=== PATIENT | female | born 1950 | race African-American/Black ===

== ENCOUNTER → 2017-10-23 | Outpatient (CLI) | payer MEDICARE, OTHER, MEDICAID ==
[2017-10-23 11:18] LABS: HEMATOCRIT 39.3 % (37.0-47.0); HEMOGLOBIN 12.7 g/dL (12.5-16.0); MEAN CELL VOLUME 98 fl (78-100); MEAN CORPUSCULAR HEMOGLOBIN 32 pg (27-31); MEAN CORPUSCULAR HGB CONC 32 g/dL (33-37); MEAN PLATELET VOLUME 9.1 fl (7.4-10.4); PLATELET COUNT 310 K/mm3 (130-400); RED BLOOD COUNT 4.01 M/mm3 (4.10-5.30); RED CELL DISTRIBUTION WIDTH 13.5 % (11.5-14.5); WHITE BLOOD COUNT 6.7 K/mm3 (4.8-10.8)
[2017-10-23 11:38] LABS: ALBUMIN 3.9 g/dL (3.5-5.0); CALCIUM 9.7 mg/dL (8.4-10.2); POTASSIUM 4.5 mmol/L (3.6-5.0); TOTAL BILIRUBIN 0.4 mg/dL (0.2-1.3); TOTAL PROTEIN 7.9 g/dL (6.3-8.2)
[2017-10-23 13:49] LABS: BAND 1 % (0-10); NEUTROPHILS 64 % (42-75)
[2017-10-23 13:50] LABS: LYMPHOCYTE 22 % (20-51); MONOCYTE 12 % (3-10)
== END ==
LOC: LAB 10:19
PROVIDERS: Internal Medicine
DX: G40.909 Epilepsy, unspecified, not intractable, without status epilepticus (principal); M85.89 Other specified disorders of bone density and structure, multiple sites; E78.5 Hyperlipidemia, unspecified; A41.51 Sepsis due to Escherichia coli [E. coli]; E03.4 Atrophy of thyroid (acquired)

== ENCOUNTER → 2018-04-13 | Outpatient (CLI) | payer MEDICARE, OTHER, MEDICAID ==
[2018-04-13 14:41] LABS: PH-URINE 5.5 (5.0 - 8.0); URINE APPEARANCE CLOUDY; URINE BILIRUBIN NEGATIVE (NEGATIVE); URINE BLOOD 50 ery/uL (NEGATIVE); URINE COLOR YELLOW; URINE GLUCOSE NEGATIVE (NEGATIVE); URINE KETONE NEGATIVE (NEGATIVE); URINE NITRATE POSITIVE (NEGATIVE); URINE PROTEIN(semi-quant) 1+ mg/dL (NEGATIVE); URINE UROBILINOGEN NORMAL (NORMAL)
[2018-04-13 14:42] LABS: URINE LEUKOCYTE ESTERASE 2+ (NEGATIVE); URINE WBC 16-30 /hpf (0-3)
== END ==
LOC: LAB 14:09
PROVIDERS: Internal Medicine
DX: N39.0 Urinary tract infection, site not specified (principal); R32 Unspecified urinary incontinence

== ENCOUNTER → 2019-09-03 | Outpatient (CLI) | payer MEDICARE, OTHER, MEDICAID ==
[2019-09-03 09:37] LABS: HEMOGLOBIN 12.6 g/dL (12.5-16.0); MEAN CELL VOLUME 97 fl (78-100); MEAN CORPUSCULAR HEMOGLOBIN 31 pg (27-31); MEAN CORPUSCULAR HGB CONC 32 g/dL (33-37); MEAN PLATELET VOLUME 9.1 fl (7.4-10.4); PLATELET COUNT 196 K/mm3 (130-400); RED BLOOD COUNT 4.03 M/mm3 (4.10-5.30); WHITE BLOOD COUNT 6.3 K/mm3 (4.8-10.8)
[2019-09-03 10:00] LABS: LYMPHOCYTE 26 % (20-51); MONOCYTE 13 % (3-10); NEUTROPHILS 61 % (42-75)
[2019-09-04 14:40] LABS: ALBUMIN 3.9 g/dL (3.4-4.8); POTASSIUM 4.3 mmol/L (3.5-5.1)
[2019-09-04 14:41] LABS: CALCIUM 9.5 mg/dL (8.3-10.5)
[2019-09-04 14:44] LABS: TOTAL BILIRUBIN 0.3 mg/dL (0.2-1.2)
== END ==
LOC: LAB 09:19
PROVIDERS: Internal Medicine
DX: G40.309 Generalized idiopathic epilepsy and epileptic syndromes, not intractable, without status epilepticus (principal); M85.89 Other specified disorders of bone density and structure, multiple sites; E78.2 Mixed hyperlipidemia; E03.9 Hypothyroidism, unspecified

== ENCOUNTER → 2020-03-03 | Outpatient (CLI) | payer MEDICARE, OTHER, MEDICAID ==
[2020-03-03 11:10] LABS: EOS % 0.4 % (1.0-5.0); HEMATOCRIT 41.2 % (37.0-47.0); HEMOGLOBIN 13.1 g/dL (12.5-16.0); LYMPH# 1.4 (1.50-4.00); MEAN CELL VOLUME 96 fl (78-100); MEAN CORPUSCULAR HEMOGLOBIN 30 pg (27-31); MEAN CORPUSCULAR HGB CONC 32 g/dL (33-37); MONO # 0.7 (0.20-0.80); NEU # 3.7 (1.40-6.50); PLATELET COUNT 237 K/mm3 (130-400); RED BLOOD COUNT 4.31 M/mm3 (4.10-5.30); RED CELL DISTRIBUTION WIDTH 13.4 % (11.5-14.5); WHITE BLOOD COUNT 5.7 K/mm3 (4.8-10.8)
[2020-03-03 11:13] LABS: POTASSIUM 4.1 mmol/L (3.5-5.1)
[2020-03-03 11:14] LABS: CALCIUM 9.7 mg/dL (8.3-10.5)
[2020-03-03 11:16] LABS: TOTAL PROTEIN 7.3 g/dL (6.2-8.1)
[2020-03-03 11:17] LABS: TOTAL BILIRUBIN 0.4 mg/dL (0.2-1.2)
[2020-03-03 11:22] LABS: MAGNESIUM 1.67 mg/dL (1.60-2.60)
[2020-03-03 12:21] LABS: ERYTHROCYTE SEDIMENTATION RATE 25 mm/hr (0-30)
== END ==
LOC: LAB 10:29
PROVIDERS: Internal Medicine
DX: G40.909 Epilepsy, unspecified, not intractable, without status epilepticus (principal); K90.9 Intestinal malabsorption, unspecified; M81.0 Age-related osteoporosis without current pathological fracture

== ENCOUNTER → 2020-09-29 | Outpatient (CLI) | payer MEDICARE, OTHER, MEDICAID ==
[2020-09-29 11:13] LABS: BASO # 0.03 (0.02-0.10); EOS # 0.03 (0.04-0.40); EOS % 0.6 % (1.0-5.0); HEMATOCRIT 38.6 % (37.0-47.0); HEMOGLOBIN 12.7 g/dL (12.5-16.0); LYMPH# 1.62 (1.50-4.00); MEAN CELL VOLUME 95 fl (78-100); MEAN CORPUSCULAR HEMOGLOBIN 31 pg (27-31); MEAN CORPUSCULAR HGB CONC 33 g/dL (33-37); MEAN PLATELET VOLUME 8.9 fl (7.4-10.4); MONO # 0.81 (0.20-0.80); NEU # 2.61 (1.40-6.50); PLATELET COUNT 176 K/mm3 (130-400); RED BLOOD COUNT 4.07 M/mm3 (4.10-5.30); RED CELL DISTRIBUTION WIDTH 12.9 % (11.5-14.5); WHITE BLOOD COUNT 5.1 K/mm3 (4.8-10.8)
[2020-09-29 11:29] LABS: ALBUMIN 3.7 g/dL (3.4-4.8)
[2020-09-29 11:30] LABS: POTASSIUM 4.1 mmol/L (3.5-5.1)
[2020-09-29 11:31] LABS: CALCIUM 9.2 mg/dL (8.3-10.5)
[2020-09-29 11:32] LABS: TOTAL PROTEIN 6.6 g/dL (6.2-8.1)
[2020-09-29 11:34] LABS: TOTAL BILIRUBIN 0.3 mg/dL (0.2-1.2)
== END ==
LOC: LAB 10:56
PROVIDERS: Internal Medicine
DX: G40.909 Epilepsy, unspecified, not intractable, without status epilepticus (principal); M81.0 Age-related osteoporosis without current pathological fracture; N39.0 Urinary tract infection, site not specified

== ENCOUNTER → 2020-11-19 | Outpatient (CLI) | payer MEDICARE, OTHER, MEDICAID ==
[2020-11-19 15:08] LABS: BASO # 0.01 (0.02-0.10); EOS # 0.06 (0.04-0.40); EOS % 1.1 % (1.0-5.0); HEMOGLOBIN 12.5 g/dL (12.5-16.0); LYMPH# 1.86 (1.50-4.00); MEAN CELL VOLUME 99 fl (78-100); MEAN CORPUSCULAR HEMOGLOBIN 32 pg (27-31); MEAN CORPUSCULAR HGB CONC 32 g/dL (33-37); MEAN PLATELET VOLUME 8.6 fl (7.4-10.4); MONO # 0.69 (0.20-0.80); NEU # 2.96 (1.40-6.50); PLATELET COUNT 201 K/mm3 (130-400); RED BLOOD COUNT 3.93 M/mm3 (4.10-5.30); WHITE BLOOD COUNT 5.6 K/mm3 (4.8-10.8)
[2020-11-19 15:16] LABS: ALBUMIN 3.8 g/dL (3.4-4.8)
[2020-11-19 15:17] LABS: POTASSIUM 4.1 mmol/L (3.5-5.1)
[2020-11-19 15:18] LABS: CALCIUM 9.3 mg/dL (8.3-10.5)
[2020-11-19 15:19] LABS: TOTAL PROTEIN 6.8 g/dL (6.2-8.1)
[2020-11-19 15:21] LABS: TOTAL BILIRUBIN 0.3 mg/dL (0.2-1.2)
== END ==
LOC: LAB 14:49
PROVIDERS: Internal Medicine
DX: G40.909 Epilepsy, unspecified, not intractable, without status epilepticus (principal)

== ENCOUNTER → 2021-09-16 | Outpatient (CLI) | payer MEDICARE, OTHER, MEDICAID ==
[2021-09-16 17:32] LABS: BASO # 0.01 K/mm3 (0.02-0.10); EOS # 0.03 K/mm3 (0.04-0.40); EOS % 0.5 % (1.0-5.0); HEMATOCRIT 40.4 % (37.0-47.0); HEMOGLOBIN 13.3 g/dL (12.5-16.0); LYMPH# 2.08 K/mm3 (1.50-4.00); MEAN CELL VOLUME 97 fl (78-100); MEAN CORPUSCULAR HEMOGLOBIN 32 pg (27-31); MEAN CORPUSCULAR HGB CONC 33 g/dL (33-37); MEAN PLATELET VOLUME 8.7 fl (7.4-10.4); MONO # 0.74 K/mm3 (0.20-0.80); NEU # 3.15 K/mm3 (1.40-6.50); PLATELET COUNT 176 K/mm3 (130-400); RED BLOOD COUNT 4.17 M/mm3 (4.10-5.30); RED CELL DISTRIBUTION WIDTH 12.9 % (11.5-14.5)
[2021-09-16 17:49] LABS: ALBUMIN 3.9 g/dL (3.4-4.8)
[2021-09-16 17:50] LABS: POTASSIUM 4.2 mmol/L (3.5-5.1)
[2021-09-16 17:51] LABS: CALCIUM 9.8 mg/dL (8.3-10.5)
[2021-09-16 17:52] LABS: TOTAL PROTEIN 6.9 g/dL (6.2-8.1)
[2021-09-16 17:54] LABS: TOTAL BILIRUBIN 0.3 mg/dL (0.2-1.2)
[2021-09-16 17:59] LABS: MAGNESIUM 1.79 mg/dL (1.60-2.60)
== END ==
LOC: LAB 17:13
PROVIDERS: Internal Medicine
DX: Z12.31 Encounter for screening mammogram for malignant neoplasm of breast (principal); G40.909 Epilepsy, unspecified, not intractable, without status epilepticus; M15.0 Primary generalized (osteo)arthritis; N39.46 Mixed incontinence; Z28.9 Immunization not carried out for unspecified reason; G80.0 Spastic quadriplegic cerebral palsy; K90.9 Intestinal malabsorption, unspecified; M25.371 Other instability, right ankle